=== PATIENT | male | born 1940 | race Caucasian/White ===

== ENCOUNTER 2016-10-10 01:50 | Emergency (ER) | payer OTHER ==
--- NOTE | 2016-10-10 01:58 | ED CARDIAC/CP/PALPITATIONS ---
History of Present Illness General Chief Complaint: Chest Pain Stated Complaint: CHEST PAIN Source: patient, family Exam Limitations: no limitations Vital Signs & Intake/Output Vital Signs & Intake/Output Vital Signs Date Time Temp Pulse Resp B/P B/P Pulse O2 O2 Flow FiO2 Mean Ox Delivery Rate 10/10 0221 97.0 76 22 182/88 96 Allergies Coded Allergies: No Known Allergies (10/10/16) Reconcile Medications Atorvastatin Calcium 40 MG TABLET 1 TAB PO DAILY CHOL (Reported) Metoprolol Succinate 25 MG TAB 1 TAB PO DAILY HTN (Reported) Warfarin Sodium 5 MG TABLET 1 TAB PO DAILY THINNER (Reported) Triage Nurses Notes Reviewed? yes HPI: Patient presents with right anterior chest pain that started yesterday. Patient states he gets a sharp stabbing sensation in the right anterior portion of his chest lasts a few seconds and goes away. Patient states he states he gets multiple episodes every hour. There is no shortness of breath. There is no radiation. When he has the pain he rates as 6 out of 10 and wanted to wait it is a 0 out of 10. There is no shortness of breath, nausea or vomiting. 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 Past History Travel History Traveled to [place] past 21 day No Medical History Any Pertinent Medical History? see below for history Cardiovascular: CAD, hypertension, hyperlipidemia, DVT Tetanus Vaccine: 03/11/12 Surgical History Surgical History: STENT IN CAROTID ARTERY Psychosocial History What is your primary language Greenlandic Tobacco Use: Quit >30 days ago ETOH Use: denies use Illicit Drug Use: denies illicit drug use Family History Hx Contributory? No Review of Systems Review of Systems Constitutional: Reports: no symptoms. EENTM: Reports: no symptoms. Respiratory: Reports: no symptoms. Cardiovascular: Reports: see HPI, chest pain. GI: Reports: no symptoms. Genitourinary: Reports: no symptoms. Musculoskeletal: Reports: no symptoms. Skin: Reports: no symptoms. Neurological/Psychological: Reports: no symptoms. Hematologic/Endocrine: Reports: no symptoms. Immunologic/Allergic: Reports: no symptoms. All Other Systems: Reviewed and Negative Physical Exam Physical Exam General Appearance: well developed/nourished, alert, awake, mild distress Head: atraumatic, normal appearance Eyes: Bilateral: PERRL, EOMI. Ears, Nose, Throat: normal pharynx, normal ENT inspection, hearing grossly normal Neck: normal inspection, supple, full range of motion Respiratory: normal breath sounds, chest non-tender, no respiratory distress, lungs clear Cardiovascular: regular rate/rhythm, normal peripheral pulses Gastrointestinal: normal bowel sounds, soft, non-tender, no organomegaly Back: normal inspection, normal range of motion Extremities: normal inspection, normal capillary refill, normal range of motion, pedal edema (TRACE (CHRONIC PER PT)) Neurologic/Psych: no motor/sensory deficits, awake, alert, oriented x 3, normal gait, normal mood/affect Skin: intact, normal color, warm/dry Lymphatic: no anterior cervical malinda Core Measures ACS in differential dx? Yes ASA ordered for poss ACS? Yes-ordered Severe Sepsis Present: No Septic Shock Present: No Progress Differential Diagnosis: AMI, costochondritis, musculoskeletal pain, myocarditis, pericarditis, pneumonia, pneumothorax, pulmonary embolism Plan of Care: Orders Procedure Date/time Status TROPONIN LEVEL 10/10 0547 Complete EKG 10/10 0547 Active PARTIAL THROMBOPLASTIN TIME 10/10 0212 Complete PROTHROMBIN TIME 10/10 0212 Complete Telemetry/Lead Burner Supervisor 10/10 0205 Active TROPONIN LEVEL 10/10 0205 Complete COMPREHENSIVE METABOLIC PANEL 10/10 0205 Complete CBC WITHOUT DIFFERENTIAL 10/10 0205 Complete EKG 10/10 0150 Active Laboratory Tests 10/10/16 0600: Troponin I 0.03 10/10/16 0215: Anion Gap 9, Estimated GFR > 60, BUN/Creatinine Ratio 21.0, Glucose 105 H, Calcium 8.9, Total Bilirubin 1.5 H, AST 33, ALT 37, Alkaline Phosphatase 66, Troponin I 0.02, Total Protein 7.2, Albumin 4.1, Globulin 3.1, Albumin/Globulin Ratio 1.3, PT 26.8 H, INR 2.58 H, APTT 47 H, CBC w Diff NO MAN DIFF REQ, RBC 4.65 L, MCV 88.0, MCH 29.4, RDW 14.2, MPV 8.0, Gran % 60.0, Lymphocytes % 28.3, Monocytes % 8.8, Eosinophils % 2.6, Basophils % 0.3, Absolute Granulocytes 5.3, Absolute Lymphocytes 2.5, Absolute Monocytes 0.8 H, Absolute Eosinophils 0.2, Absolute Basophils 0, PUBS MCHC 33.4 Diagnostic Imaging: Viewed by Me: Radiology Read, CT Scan. Discussed w/RAD: Radiology Read, CT Scan. Radiology Impression: PATIENT: JOLLY MCELROY PRESENT AGE: 76 PATIENT ACCOUNT NO: [id number] : 40 LOCATION: [facility] ORDERING PHYSICIAN: SOHAN TAYLOR MD SERVICE DATE: 10/10/16 EXAM TYPE: CAT - CTA CHEST-PULMONARY EMBOLISM EXAMINATION: CT ANGIOGRAM OF THE CHEST WITH AND WITHOUT CONTRAST (CT PULMONARY ANGIOGRAM FOR PE) CLINICAL INFORMATION: CHEST PAIN AND DVT COMPARISON: Chest x-ray from earlier today TECHNIQUE: Prior to contrast administration, noncontrast localization images were obtained. Subsequently, multidetector volumetric imaging was performed from the thoracic inlet to below the diaphragms following the administration of 85 mL Optiray 350 intravenous contrast. No contrast reaction reported. Sagittal, coronal, and MIP oblique sagittal reformatted images were obtained on the CT workstation, uploaded to PACS, and reviewed. Total exam dose-length product 494.41 mGy-cm. FINDINGS: QUALITY OF STUDY/CONTRAST BOLUS: Satisfactory PULMONARY ARTERIES: No central or segmental pulmonary emboli. THORACIC AORTA: No aneurysm. LUNG: No regions of consolidation. Minimal subsegmental atelectasis is noted. There is a 6 mm right lower lobe nodule on image 307/472 laterally. PLEURA: No pleural effusion or pneumothorax. MEDIASTINUM: The visualized thyroid gland is unremarkable. There are subcentimeter mediastinal lymph nodes within the range of normal variation. Cardiac size is within normal limits; no pericardial effusion. Coronary artery calcifications are present. A small hiatal hernia is noted. CHEST WALL/AXILLA: No axillary or internal mammary lymphadenopathy. OSSEOUS STRUCTURES: Multilevel degenerative endplate changes are noted in the spine. UPPER ABDOMEN: Unremarkable. No reflux of contrast into the hepatic veins to suggest elevated right heart pressures. IMPRESSION: 1. No pulmonary embolus identified. 2. Right lower lobe 6 mm lung nodule. According to the UPDATED 2017 Fleischner Society recommendations, the advised follow-up imaging for a single 6 -8 mm solid nodule is: LOW RISK PATIENT: CT at 6-12 months, then consider CT at 18-24 months. HIGH RISK PATIENT: CT at 6-12 months, then at 18-24 months. 3. Small hiatal hernia. VTE: negative DICTATED BY: RHONDA GOODWIN MD DATE/TIME DICTATED:10/10/16502 COMPENSATION BUSINESS PARTNER:JUANPABLO DATE/TIME TRANSCRIBED:502 CONFIDENTIAL, DO NOT COPY WITHOUT APPROPRIATE AUTHORIZATION. < Electronically signed in Other Vendor System> SIGNED BY: RHONDA GOODWIN MD 10/10/16 0517 CXR Impression: PATIENT: JOLLY MCELROY PRESENT AGE: 76 PATIENT ACCOUNT NO: [id number] : 40 LOCATION: [facility] ORDERING PHYSICIAN: SOHAN TAYLOR MD SERVICE DATE: 10/10/16 EXAM TYPE: RAD - XRY- PORTABLE CHEST XRAY EXAMINATION: XR PORTABLE CHEST CLINICAL INFORMATION: Chest pain COMPARISON: None TECHNIQUE: Portable frontal view of the chest was obtained. FINDINGS: Lung volumes are symmetric. No definite consolidation is seen. No evidence of pneumothorax, pleural effusion, or overt pulmonary edema. Cardiac size appears near the upper limits of normal. No acute osseous findings are seen. IMPRESSION: No acute findings identified. DICTATED BY: RHONDA GOODWIN MD DATE/TIME DICTATED:10/10/16330 COMPENSATION BUSINESS PARTNER:JUANPABLO DATE/TIME TRANSCRIBED:10/10/16330 CONFIDENTIAL, DO NOT COPY WITHOUT APPROPRIATE AUTHORIZATION. <Electronically signed in Other Vendor System> SIGNED BY: RHONDA GOODWIN MD 10/10/16334 Initial ED EKG: SR WITH PAC'S AND NSSTT CHANGES. NO OLD TO COMPARE Rhythm Strip: normal sinus rhythm Departure Departure Disposition: HOME OR SELF CARE Condition: Stable Clinical Impression Primary Impression: Chest pain, unspecified Qualifiers: Chest pain type: other chest pain Qualified Code: R07.89 - Other chest pain Referrals: AVELINO MILLER,PATRICIA Atkins (PCP/Family) Additional Instructions: FOLLOW UP WITH YOUR RADIOLOGY TRANSCRIPTIONIST RETURN FOR ANY CONCERNS Departure Forms: Customer Survey General Discharge Information Critical Care Note Critical Care Note Critical Care Time: non-applicable
[2016-10-10 02:21] LABS: ABSOLUTE BASOPHIL COUNT 0 /CUMM (0.0-0.2); ABSOLUTE EOSINOPHIL COUNT 0.2 /CUMM (0.0-0.7); ABSOLUTE GRANULOCYTE CT 5.3 /CUMM (1.4-6.5); ABSOLUTE LYMPH COUNT 2.5 /CUMM (1.2-3.4); ABSOLUTE MONOCYTE COUNT 0.8 /CUMM (0.10-0.60); BASOPHIL % 0.3 % (0.0-2.0); EOSINOPHIL % 2.6 % (0-5); HEMATOCRIT 40.9 % (42-52); MEAN CORPUSCULAR HGB 29.4 PG (27.0-31.0); MEAN CORPUSCULAR HGB CONC 33.4 G/DL (33.0-37.0); PLATELET COUNT 166 /CUMM (130-400); RBC DISTRIBUTION WIDTH 14.2 % (11.5-14.5); RED BLOOD CELL CT 4.65 /CUMM (4.70-6.10); WHITE BLOOD CELL COUNT 8.8 /CUMM (4.8-10.8)
[2016-10-10 02:28] LABS: PT 26.8 SEC (9.4-12.5); PTT 47 SEC (25-37)
--- NOTE | 2016-10-10 03:35 | RADIOLOGY REPORT ---
EXAMINATION: XR PORTABLE CHEST CLINICAL INFORMATION: Chest pain COMPARISON: None TECHNIQUE: Portable frontal view of the chest was obtained. FINDINGS: Lung volumes are symmetric. No definite consolidation is seen. No evidence of pneumothorax, pleural effusion, or overt pulmonary edema. Cardiac size appears near the upper limits of normal. No acute osseous findings are seen. IMPRESSION: No acute findings identified.
[2016-10-10] MEDS ORDERED: ATORVASTATIN CA40 M1 PO (04:34)
[2016-10-10] MEDS ORDERED: METOPROLOL SUCC25 M1 PO (04:34)
[2016-10-10] MEDS ORDERED: WARFARIN SODIUM5 M1 PO (04:34)
--- NOTE | 2016-10-10 05:17 | CT SCAN REPORT ---
EXAMINATION: CT ANGIOGRAM OF THE CHEST WITH AND WITHOUT CONTRAST (CT PULMONARY ANGIOGRAM FOR PE) CLINICAL INFORMATION: CHEST PAIN AND DVT COMPARISON: Chest x-ray from earlier today TECHNIQUE: Prior to contrast administration, noncontrast localization images were obtained. Subsequently, multidetector volumetric imaging was performed from the thoracic inlet to below the diaphragms following the administration of 85 mL Optiray 350 intravenous contrast. No contrast reaction reported. Sagittal, coronal, and MIP oblique sagittal reformatted images were obtained on the CT workstation, uploaded to PACS, and reviewed. Total exam dose-length product 494.41 mGy-cm. FINDINGS: QUALITY OF STUDY/CONTRAST BOLUS: Satisfactory PULMONARY ARTERIES: No central or segmental pulmonary emboli. THORACIC AORTA: No aneurysm. LUNG: No regions of consolidation. Minimal subsegmental atelectasis is noted. There is a 6 mm right lower lobe nodule on image 307/472 laterally. PLEURA: No pleural effusion or pneumothorax. MEDIASTINUM: The visualized thyroid gland is unremarkable. There are subcentimeter mediastinal lymph nodes within the range of normal variation. Cardiac size is within normal limits; no pericardial effusion. Coronary artery calcifications are present. A small hiatal hernia is noted. CHEST WALL/AXILLA: No axillary or internal mammary lymphadenopathy. OSSEOUS STRUCTURES: Multilevel degenerative endplate changes are noted in the spine. UPPER ABDOMEN: Unremarkable. No reflux of contrast into the hepatic veins to suggest elevated right heart pressures. IMPRESSION: 1. No pulmonary embolus identified. 2. Right lower lobe 6 mm lung nodule. According to the UPDATED 2017 Fleischner Society recommendations, the advised follow-up imaging for a single 6-8 mm solid nodule is: LOW RISK PATIENT: CT at 6-12 months, then consider CT at 18-24 months. HIGH RISK PATIENT: CT at 6-12 months, then at 18-24 months. 3. Small hiatal hernia. VTE: negative
[2016-10-10 07:00] VITALS: BP 178/94
== END 2016-10-10 07:01 ==
LOC: ERH 01:50
PROVIDERS: Emergency Medicine
DX: R07.89 Other chest pain (principal)
CPT/HCPCS: 93005; 93010